=== PATIENT | female | born 1975 | race Caucasian/White ===

== ENCOUNTER 2016-07-30 16:42 | Emergency (ER) | payer BC ==
[2016-07-30 16:46] VITALS: RESP 20
--- NOTE | 2016-07-30 17:13 | ED ---
Abdominal Pain HPI - General Chief Complaint: Abdominal Pain Stated Complaint: Back/Side Pain Time Seen by Provider: 07/30/16 16:48 Source: patient, RN notes reviewed Mode of arrival: ambulatory Limitations: no limitations - History of Present Illness Initial Comments: 41-year-old female presents emergency Department with chief complaint of right flank pain. Patient states that she's had on and off pain over the last 6 months. Patient hasn't seen her primary care physician who ordered a urinalysis CT. Patient states there is no acute abnormality on CT. Patient states that she figured should come today when the pain was active. States pain started as approximately 10:00. She states that she broke process exam. She states is nothing that starts her pain or helps it one is active. Patient states that primarily in the right side of her abdomen and back. Patient denies any dysuria hematuria. Has no history kidney stones. Patient had a prior hernia repair but denies any hysterectomy, appendectomy, cholecystectomy. Patient has no bowel issues. Denies diarrhea or constipation. Denies melena , hematochezia, hematemesis copremesis. Patient has fever or chills. - Related Data Previous Rx's Medication Instructions Recorded Hydrocodone/Acetaminophen [Bradley 1 tab PO Q6HR PRN #20 tab 07/30/16 5-325] Ketorolac [Toradol] 10 mg PO Q8HR #15 tab 07/30/16 Allergies Allergy/AdvReac Type Severity Reaction Status Date / Time hydromorphone HCl AdvReac Severe MIGRAINE Verified 07/30/16 17:24 [From Dilaudid] Review of Systems ROS Statement: Those systems with pertinent positive or pertinent negative responses have been documented in the HPI. ROS Other: All systems not noted in ROS Statement are negative. Past Medical History Additional Past Medical History / Comment(s): MIGRAINES History of Any Multi-Drug Resistant Organisms: None Reported Past Surgical History: Tonsillectomy, Tubal Ligation Additional Past Surgical History / Comment(s): two metal plates in left wrist Past Anesthesia/Blood Transfusion Reactions: Postoperative Nausea & Vomiting ( PONV) Past Psychological History: No Psychological Hx Reported Smoking Status: Never smoker Past Alcohol Use History: Occasional Past Drug Use History: None Reported General Exam Limitations: no limitations General appearance: alert, in no apparent distress Head exam: Present: atraumatic, normocephalic, normal inspection Neck exam: Present: normal inspection, full ROM. Absent: tenderness, meningismus, lymphadenopathy Respiratory exam: Present: normal lung sounds bilaterally. Absent: respiratory distress, wheezes, rales, rhonchi, stridor Cardiovascular Exam: Present: regular rate, normal rhythm, normal heart sounds. Absent: systolic murmur, diastolic murmur, rubs, gallop, clicks GI/Abdominal exam: Present: soft, tenderness (Moderate quadrant tenderness), normal bowel sounds. Absent: distended, guarding, rebound, rigid Back exam: Present: CVA tenderness (R). Absent: CVA tenderness (L) Skin exam: Present: warm, dry, intact, normal color. Absent: rash Course Vital Signs 07/30/16 16:44 Temperature 97.7 F Pulse Rate 52 L Respiratory 20 Rate Blood Pressure 122/73 O2 Sat by Pulse 99 Oximetry Medical Decision Making - Medical Decision Making 41-year-old female presented for right flank pain. Patient's ultrasound shows dilation of the clots and up on the right kidney. Patient has 4 RBCs her urine. Patient has CT in June show no evidence of stone though is slightly limited secondary to contrast. Patient will be follow-up with urologist for further evaluation and primary care physician. Return parameters. - Lab Data Result diagrams: 07/30/16 17:10 07/30/16 17:10 Lab Results 07/30/16 07/30/16 07/30/16 Range/Units 17:10 17:10 17:10 WBC 6.1 (3.8-10.6) k/uL RBC 4.33 (3.80-5.40) m/uL Hgb 13.7 (11.4-16.0) gm/dL Hct 40.1 (34.0-46.0) % MCV 92.6 (80.0-100.0) fL MCH 31.6 (25.0-35.0) pg MCHC 34.1 (31.0-37.0) g/dL RDW 11.9 (11.5-15.5) % Plt Count 215 (150-450) k/uL Neutrophils % 50 % Lymphocytes % 37 % Monocytes % 6 % Eosinophils % 5 % Basophils % 1 % Neutrophils # 3.1 (1.3-7.7) k/uL Lymphocytes # 2.2 (1.0-4.8) k/uL Monocytes # 0.3 (0-1.0) k/uL Eosinophils # 0.3 (0-0.7) k/uL Basophils # 0.1 (0-0.2) k/uL Sodium 140 (137-145) mmol/L Potassium 4.3 (3.5-5.1) mmol/L Chloride 105 (98-107) mmol/L Carbon Dioxide 21 L (22-30) mmol/L Anion Gap 14 mmol/L BUN 17 (7-17) mg/dL Creatinine 0.88 (0.52-1.04) mg/dL Est GFR (MDRD) Af Amer >60 (>60 ml/min/1.73 sqM) Est GFR (MDRD) Non-Af >60 (>60 ml/min/1.73 sqM) Glucose 85 (74-99) mg/dL Calcium 9.5 (8.4-10.2) mg/dL Total Bilirubin 1.2 (0.2-1.3) mg/dL AST 33 (14-36) U/L ALT 41 (9-52) U/L Alkaline Phosphatase 59 (38-126) U/L Total Protein 7.6 (6.3-8.2) g/dL Albumin 4.9 (3.5-5.0) g/dL Amylase 44 (30-110) U/L Lipase 121 (23-300) U/L Urine Color Urine Appearance (Clear) Urine pH (5.0-8.0) Ur Specific Parker (1.001-1.035) Urine Protein (Negative) Urine Glucose (UA) (Negative) Urine Ketones (Negative) Urine Blood (Negative) Urine Nitrate (Negative) Urine Bilirubin (Negative) Urine Urobilinogen (<2.0) mg/dL Ur Leukocyte Esterase (Negative) Urine RBC (0-5) /hpf Urine WBC (0-5) /hpf Ur Squamous Epith Cells (0-4) /hpf Amorphous Sediment (None) /hpf Urine Mucus (None) /hpf Urine HCG, Qual Not Detected (Not Detectd) 07/30/16 Range/Units 17:10 WBC (3.8-10.6) k/uL RBC (3.80-5.40) m/uL Hgb (11.4-16.0) gm/dL Hct (34.0-46.0) % MCV (80.0-100.0) fL MCH (25.0-35.0) pg MCHC (31.0-37.0) g/dL RDW (11.5-15.5) % Plt Count (150-450) k/uL Neutrophils % % Lymphocytes % % Monocytes % % Eosinophils % % Basophils % % Neutrophils # (1.3-7.7) k/uL Lymphocytes # (1.0-4.8) k/uL Monocytes # (0-1.0) k/uL Eosinophils # (0-0.7) k/uL Basophils # (0-0.2) k/uL Sodium (137-145) mmol/L Potassium (3.5-5.1) mmol/L Chloride (98-107) mmol/L Carbon Dioxide (22-30) mmol/L Anion Gap mmol/L BUN (7-17) mg/dL Creatinine (0.52-1.04) mg/dL Est GFR (MDRD) Af Amer (>60 ml/min/1.73 sqM) Est GFR (MDRD) Non-Af (>60 ml/min/1.73 sqM) Glucose (74-99) mg/dL Calcium (8.4-10.2) mg/dL Total Bilirubin (0.2-1.3) mg/dL AST (14-36) U/L ALT (9-52) U/L Alkaline Phosphatase (38-126) U/L Total Protein (6.3-8.2) g/dL Albumin (3.5-5.0) g/dL Amylase (30-110) U/L Lipase (23-300) U/L Urine Color Light Yellow Urine Appearance Clear (Clear) Urine pH 6.5 (5.0-8.0) Ur Specific Parker 1.012 (1.001-1.035) Urine Protein Negative (Negative) Urine Glucose (UA) Negative (Negative) Urine Ketones Negative (Negative) Urine Blood Small H (Negative) Urine Nitrate Negative (Negative) Urine Bilirubin Negative (Negative) Urine Urobilinogen <2.0 (<2.0) mg/dL Ur Leukocyte Esterase Negative (Negative) Urine RBC 4 (0-5) /hpf Urine WBC 3 (0-5) /hpf Ur Squamous Epith Cells 1 (0-4) /hpf Amorphous Sediment Rare H (None) /hpf Urine Mucus Rare H (None) /hpf Urine HCG, Qual (Not Detectd) Disposition Clinical Impression: Right flank pain, Renal colic, Dilatation of kidney collecting system Disposition: HOME SELF-CARE Condition: Stable Instructions: Flank Pain (ED) Additional Instructions: Please return to the Emergency Department if symptoms worsen or any other concerns. Prescriptions: Hydrocodone/Acetaminophen [Bradley 5-325] 1 tab PO Q6HR PRN #20 tab PRN Reason: Pain Ketorolac [Toradol] 10 mg PO Q8HR #15 tab Referrals: Olga Paiz MD [Primary Care Provider] - 1-2 days Manuelito Vázquez MD [STAFF PHYSICIAN] - 1-2 days Time of Disposition: 18:44
[2016-07-30 17:25] LABS: Basophils # (A) 0.1 k/uL (0-0.2); Basophils % (A) 1 %; CH 32.3; Eosinophils # (A) 0.3 k/uL (0-0.7); Eosinophils % (A) 5 %; HCT 40.1 % (34.0-46.0); HGB 13.7 gm/dL (11.4-16.0); Luc # (Auto) 0.08; Luc % (Auto) 1; Lymphocytes # (A) 2.2 k/uL (1.0-4.8); Lymphocytes % (A) 37 %; MCH 31.6 pg (25.0-35.0); MCHC 34.1 g/dL (31.0-37.0); MCV 92.6 fL (80.0-100.0); Mean Platelet Volume 7.5; Monocytes # (A) 0.3 k/uL (0-1.0); Monocytes % (A) 6 %; Neutrophils # (A) 3.1 k/uL (1.3-7.7); Neutrophils % (A) 50 %; RBC 4.33 m/uL (3.80-5.40); RDW 11.9 % (11.5-15.5); WBC 6.1 k/uL (3.8-10.6); WBC (Perox) 6.01
[2016-07-30 17:27] LABS: Amorphous Sediment,Urine Rare /hpf; Appearance,Urine Clear (Clear); Bilirubin,Urine Negative (Negative); Glucose,Urine (UA) Negative (Negative); Ketones,Urine Negative (Negative); Leukocyte Esterase,Urine Negative (Negative); Mucus,Urine Rare /hpf; Nitrite,Urine Negative (Negative); PH, Urine 6.5 (5.0-8.0); Particle Count 994; Protein,Urine Negative (Negative); RBC,Urine 4 /hpf (0-5); Specific Gravity,Urine 1.012 (1.001-1.035); Squamous Epithelial Cell,Urine 1 /hpf (0-4); UA Billing (MACRO vs. MICRO) MICRO; Urobilinogen,Urine <2.0 mg/dL (<2.0); WBC,Urine 3 /hpf (0-5)
[2016-07-30 17:34] LABS: ALT 41 U/L (9-52); AST 33 U/L (14-36); Alkaline Phosphatase 59 U/L (38-126); Amylase 44 U/L (30-110); Anion Gap 14 mmol/L; Blood Urea Nitrogen 17 mg/dL (7-17); Calcium 9.5 mg/dL (8.4-10.2); Carbon Dioxide 21 mmol/L (22-30); Chloride 105 mmol/L (98-107); Glucose 85 mg/dL (74-99); Non-African American GFR(MDRD) >60 (>60 ml/min/1.73 sqM); Potassium 4.3 mmol/L (3.5-5.1); Sodium 140 mmol/L (137-145); Total Bilirubin 1.2 mg/dL (0.2-1.3); Total Protein 7.6 g/dL (6.3-8.2)
--- NOTE | 2016-07-30 18:18 | US ---
EXAMINATION TYPE: US abdomen limited DATE OF EXAM: 07/30/2016 5:46 PM COMPARISON: Ultrasound November 18, 2013 CLINICAL HISTORY: Pain. EXAM MEASUREMENTS: Liver Length: 13.8 cm Gallbladder Wall: 0.3 cm CBD: 0.2 cm Right Kidney: 11.0 x 5.3 x 5.4 cm FINDINGS: Pancreas: Obscured by bowel gas Liver: wnl Gallbladder: wnl Evidence for sonographic Quiroz's sign: no CBD: wnl Right Kidney: Minimally dilated upper collecting system, nonspecific finding unless there is clinica l right renal colic. IMPRESSION: NO DEFINITE ACUTE PROCESS, THOUGH MILDLY DILATED RIGHT UPPER COLLECTING SYSTEM NOTED.
[2016-07-30] MEDS ORDERED: HYDROcodone/APAP 5-325MG 1 EACH TAB PO STA (18:42)
[2016-07-30] MEDS ORDERED: KETOROLAC 30 MG/ML 1 ML VIAL IVP STA (18:42)
[2016-07-30 19:05] VITALS: BP 127/75; PULSE 59; TEMP 97.8
--- NOTE | 2016-07-30 19:37 | XR ---
EXAMINATION TYPE: XR KUB DATE OF EXAM: 07/30/2016 6:48 PM COMPARISON: NONE HISTORY: Pain TECHNIQUE 2 upright views FINDINGS: There is no pneumoperitoneum or pneumatosis. There is abundant pancolonic stool. Bowel gas pattern is otherwise unremarkable. No evident soft tissue mass. No focal skeletal findings. The visua lized lung bases and pleural spaces are negative. IMPRESSION: EVIDENT CONSTIPATION. NO OTHER FINDINGS.
== END 2016-07-30 19:04 | disposition home or self-care (01) ==
LOC: EC 16:42
DX: N23 Unspecified renal colic (principal); N28.89 Other specified disorders of kidney and ureter; Z88.5 Allergy status to narcotic agent
CPT/HCPCS: 36415; 80053; 82150; 83690; 85025; 81001; 81025; 74000; 76705; 99284; 96374; J1885

== ENCOUNTER → 2016-10-26 | Outpatient (CLI) | payer BC ==
[2016-10-22 14:26] VITALS: BMI 28.8
[2016-10-26 14:05] VITALS: BP 128/78; PULSE 60; RESP 18; TEMP 98.6
--- NOTE | 2016-10-26 14:31 | P.CONS ---
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 The pain goes to the right side and the mid axillary line approximately. It does not radiate to the groin or to the leg. The patient denies any bowel or bladder dysfunction she also denies any paresthesia in the lower extremities. This pain does not wake her up at night. She denies any weight loss recently. This pain occurs and episodes each one with the last 30-45 minutes is not constant. The pain goes away on its own. The patient has not noticed any exacerbating or relieving factors. She was ruled out for any urinary problems the patient denies any history of skin rash in the painful area. Past Medical History Additional Past Medical History / Comment(s): MIGRAINES, rt flank pain History of Any Multi-Drug Resistant Organisms: None Reported Past Surgical History: Tonsillectomy, Tubal Ligation Additional Past Surgical History / Comment(s): two metal plates in left wrist Past Anesthesia/Blood Transfusion Reactions: Postoperative Nausea & Vomiting ( PONV) Past Psychological History: No Psychological Hx Reported Smoking Status: Never smoker Past Alcohol Use History: Occasional Past Drug Use History: None Reported - Past Family History Mother Family Medical History: No Reported History Medications and Allergies Home Medications Medication Instructions Recorded Confirmed Type Linaclotide [Linzess] 290 mcg PO DAILY 10/22/16 10/22/16 History Sertraline [Zoloft] 50 mg PO DAILY 10/22/16 10/22/16 History methylPREDNISolone Dose Pack 4 mg PO DIRECTED 10/22/16 10/22/16 History [Medrol Dose Pack] Allergies Allergy/AdvReac Type Severity Reaction Status Date / Time hydromorphone HCl AdvReac Severe MIGRAINE Verified 10/22/16 14:20 [From Dilaudid] Physical Exam Vitals: Vital Signs Temp Pulse Resp BP Pulse Ox 10/26/16 13:53 98.6 F 60 18 128/78 97 - Constitutional General appearance: average body habitus, cooperative - EENT Eyes: PERRLA - Respiratory Respiratory: bilateral: CTA - Cardiovascular Rhythm: regular Heart sounds: normal: S1, S2 - Musculoskeletal Musculoskeletal: gait normal - Psychiatric Psychiatric: A&O x's 3, appropriate affect, intact judgment & insight Neuro exam of the lower extremities showed normal and symmetrical deep tendon reflexes and muscle strength. Straight leg raising test negative bilaterally. She has mild tenderness on the right side of her lumbar spine right above the iliac crest. She has normal range of motion of the lumbar spine. Lateral flexion does not increase the patient's pain. Extension of the lumbar spine does not increase her pain. 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 Differential diagnoses include myofascial pain, lumbar stenosis . Lumbar spondylosis without myelopathy. Her lumbar spine MRI showed moderate spinal canal stenosis at the L3 4 level with compression of the traversing right L4 nerve root it also showed partial sacralization of L5. At this point I will schedule the patient to have lumbar epidural steroid injection under fluoroscopic guidance at the L3-L4 level in the right paramedian approach. The procedure was explained to the patient and her questions were answered. I thank you for the referral.
== END | disposition home or self-care (01) ==
LOC: PNWHC3 13:30
PROVIDERS: ATTEND Anesthesiology
DX: M47.816 Spondylosis without myelopathy or radiculopathy, lumbar region (principal); M48.06 Spinal stenosis, lumbar region; Z79.899 Other long term (current) drug therapy; Z88.5 Allergy status to narcotic agent
CPT/HCPCS: 99211

== ENCOUNTER 2016-11-05 06:22 | Day surgery (SDC) | payer BC ==
[2016-11-04 11:03] VITALS: BMI 28.8
[~2016-11-05 06:22] MED LIST: LACTATED RINGERS 1,000 ML IV SCH
[2016-11-05 06:44] VITALS: TEMP 97.7
[2016-11-05] MEDS ORDERED: LIDOCAINE 1% 20 ML VIAL (10MG/ML) FOR IV START INTRADERMA ONE (06:49)
[2016-11-05] MEDS ORDERED: TRIAMCINOLONE ACETONIDE 40 MG/ML 1 ML VIAL ONE (07:09)
[2016-11-05] MEDS ORDERED: MIDAZOLAM 2 MG/2 ML VIAL ONE (07:09)
[2016-11-05] MEDS ORDERED: IOHEXOL 180 MG/ML 1 ML ML ONE (07:09)
[2016-11-05] MEDS ORDERED: fentaNYL (PF) 50 MCG/ML 2 ML AMP ONE (07:09)
[2016-11-05] MEDS ORDERED: IV FLUID CONTINUATION 1,000 ML IV ONE (07:36)
[2016-11-05 07:37] VITALS: RESP 16
--- NOTE | 2016-11-05 07:43 | P.PCN ---
Date of Procedure: 11/05/16 Procedure(s) Performed: PREOPERATIVE DIAGNOSIS: 1- Lumbar spinal stenosis 2-Lumbar spondylosis with Facet arthropathy without myelopathy POSTOPERATIVE DIAGNOSIS: 1-Lumber spinal stenosis 2-Lumbar spondylosis with Facet arthropathy without myelopathy PROCEDURE 1. Lumbar epidural steroid injection under fluoroscopic guidance at the L3-4 level.( right paramedial approach 2. Lumbar epidurogram. ANESTHESIA: Local with 1% lidocaine 3 ml and IV sedation with Versed 3 mg , and fentanyle 100 Mcg EBL: Minimal PROCEDURE INDICATION: The patient with low back pain and radiculitis symptoms unresponsive to conservative treatment. Fluoroscopy was used to optimize visualization of the needle placement and to maximize safety. PROCEDURE DESCRIPTION / TECHNIQUE: The patient was seen and identified in the preoperative area. Risks, benefits , complications including but not limited to infections ,bleeding ,allergic reaction to the medications ,nerve damage and not complete pain releife , and alternatives were discussed with the patient. The patient agreed to proceed with the procedure and signed the consent. IV was started, and vital signs were stable. Patient was taken to the OR and time out was completed. The patient was placed in the prone position on procedure table and a pillow was placed under the abdomen to reduce lumbar lordosis. The lumbosacral area was prepped and draped in the usual sterile fashion.ere closely monitored during the procedure. Conscious sedation was used during the procedure to decrease patients anxiety. Vital signs was monitered during the entire procedure. Using anterior-posterior fluoroscopy, the L3-4 interlaminar space was identified and the skin over this site was marked and then infiltrated with 1% lidocaine subcutaneously. Subsequently, a 20-gauge Tuohy epidural needle was inserted and advanced toward the right side of the epidural space using the `` Loss of resistance technique and guided by AP and lateral fluoroscopy. The correct needle position in the epidural space was verified with the injection of 2 mL of the water soluble contrast dye Omnipaque 180 contrast and observing an excellent epidurogram with the epidural spread of the dye ( toward the right aspect of the epidural space ), then after negative aspiration for blood and CSF and in the absence of paresthesias. Again after negative aspiration, a 6 ml mixture containing 80 mg of Kenalog and 2 ml of preservative free Normal Saline, and 2 ml of preservative free lidocaine 1% solution was injected and a washout of epidurogram was seen. Needle was withdrawn intact, skin was cleansed , and bandages were applied. COMPLICATIONS: None DISPOSITION / PLANS: The patient was placed in a supine position and transferred to the recovery area in a stable condition for observation. There was no evidence of lower extremity motor or sensory deficit after the procedure. Patient was discharged from the recovery room after meeting discharge criteria. Home discharge instructions were given to the patient by the staff. The patient was reexamined prior to discharge. The patient will schedule a follow up in the clinic in 2-4 weeks.
[2016-11-05 07:52] VITALS: BP 111/74; PULSE 62
--- NOTE | 2016-11-05 09:38 | FL ---
EXAMINATION TYPE: FL guided pain mgmt statistic DATE OF EXAM: 11/05/2016 7:36 AM HISTORY: Flouroscopy time 6 seconds of fluoroscopy provided. IMPRESSION: 1. Fluoroscopy time.
== END 2016-11-05 08:10 | disposition home or self-care (01) ==
LOC: ORPAIN 06:22
PROVIDERS: ATTEND Specialist
DX: M48.06 Spinal stenosis, lumbar region (principal); M47.26 Other spondylosis with radiculopathy, lumbar region; M46.96 Unspecified inflammatory spondylopathy, lumbar region; Z88.5 Allergy status to narcotic agent
CPT/HCPCS: 81025; 62323; J2250; J3301; Q9965; J3010

== ENCOUNTER 2016-11-23 06:47 | Day surgery (SDC) | payer BC ==
[2016-11-19 11:21] VITALS: BMI 29.0
[2016-11-23 07:24] VITALS: TEMP 97.7
[2016-11-23] MEDS ORDERED: LIDOCAINE 1% 20 ML VIAL (10MG/ML) FOR IV START INTRADERMA ONE (07:27)
[2016-11-23] MEDS ORDERED: LACTATED RINGERS 1,000 ML IV SCH (07:45)
[2016-11-23] MEDS ORDERED: fentaNYL (PF) 50 MCG/ML 2 ML AMP ONE (07:51)
[2016-11-23] MEDS ORDERED: TRIAMCINOLONE ACETONIDE 40 MG/ML 1 ML VIAL ONE (07:51)
[2016-11-23] MEDS ORDERED: BUPIVACAINE (PF) 0.25% 30 ML VIAL ONE (07:51)
[2016-11-23] MEDS ORDERED: IOHEXOL 180 MG/ML 1 ML ML ONE (07:51)
[2016-11-23] MEDS ORDERED: MIDAZOLAM 2 MG/2 ML VIAL ONE (07:51)
--- NOTE | 2016-11-23 08:13 | P.PCN ---
Date of Procedure: 11/23/16 Preoperative Diagnosis: Lumbar stenosis Lumbar spondylosis without myelopathy Postoperative Diagnosis: Same as above Procedure(s) Performed: Lumbar epidural steroid injection under fluoroscopic guidance in the interlaminar approach at the L3-4 Implants: Anesthesia: other (Moderate sedation) Surgeon: Riley Delarosa Pathology: none sent Condition: stable Disposition: PACU Indications for Procedure: Operative Findings: Description of Procedure: The patient was seen in the preop holding area consent was obtained then she was brought into the procedure room and placed in prone position. Skin was prepped with Betadine 3 and draped in a sterile manner. Lidocaine 1% was used to numb the skin up at the target point that was at the L3-4 level on the right paramedian approach. I used 20-gauge 3-1/2 inch Touhy epidural needle with loss -of-resistance to air to identify the epidural space. There was positive loss- of-resistance to air at about 6 cm from skin negative aspiration for any CSF or blood negative paresthesia. I then injected 1 mL of Omnipaque which showed typical epidurogram with AP and lateral views of fluoroscopy and after that I injected 40 mg of Kenalog +2 MLS of Marcaine 0.25% +4 MLS of preservative free normal saline to a total volume of 7 MLS in the epidural space. Patient tolerated procedure well.
[2016-11-23] MEDS ORDERED: IV FLUID CONTINUATION 1,000 ML IV ONE (08:14)
[2016-11-23 08:17] VITALS: RESP 18
--- NOTE | 2016-11-23 08:17 | FL ---
EXAMINATION TYPE: FL guided pain mgmt statistic DATE OF EXAM: 11/23/2016 8:14 AM HISTORY: Flouroscopy time 8 seconds of fluoroscopy provided. IMPRESSION: 1. Fluoroscopy time.
[2016-11-23 08:32] VITALS: BP 118/73; PULSE 78
== END 2016-11-23 08:51 | disposition home or self-care (01) ==
LOC: ORPAIN 06:47
PROVIDERS: ATTEND Anesthesiology
DX: M48.06 Spinal stenosis, lumbar region (principal)
CPT/HCPCS: 81025; 62323; 99152; J2250; J3301; Q9965; J3010

== ENCOUNTER → 2016-12-29 | Outpatient (CLI) | payer BC ==
[2016-12-29 14:04] VITALS: BP 123/87; PULSE 70; RESP 16; TEMP 97.8
--- NOTE | 2016-12-29 14:21 | P.PN ---
Progress Note - Text Patient returns for followup for chronic back pain with radiation to right hip. Patient recently underwent LESI x2, which provided some relief for 1-2 weeks' interval and now the patient feels as though the pain is deep in her right hip, just cephalad to her ilium. Patient continues on Motrin medications for pain with marginal relief. Patient denies adverse drug effects from medications. Today, pt denies new-onset weakness, bowel/bladder incontinence, or any other signs or symptoms of cauda equina syndrome. There are no signs of acute intoxication, and no indications of medication diversion or overuse. In addition to above, 13-point review of systems is also negative for chest pain , shortness of breath, changes in vision, changes in hearing, new onset weakness , abdominal pain, diarrhea, extreme fatigue, malaise, fever, skin changes, homicidal or suicidal ideation, or bowel or bladder incontinence. Vital Signs: Reviewed in EMR Gen: WDWN, AAOx3, NAD HEENT: NCAT, EOMI, hearing grossly normal Pulm: resp unlabored Abd: soft, NT, ND Neck: supple, trachea midline TTP over iliac crest; no rebound or guarding mild lumbar paravertebral tenderness Neuro: CN II-XII grossly intact, muscle strength lower extremities PRESERVED Imaging: Reviewed in EMR Assessment: 1. cluneal neuropathy 2. lumbar radiculopathy 3. chronic pain syndrome Plan: 1. Explanation: Opioid and psychological risk scores were reviewed. Diagnoses , prognoses, and multiple treatment options including but not limited to physical therapy, interventional therapies, adjuvant medical therapies, narcotic medication therapies, and surgery were discussed with the patient and all questions were answered to the patient's satisfaction. 2. Opioid agreement: none prescribed 3. Counseling: The patient was counseled extensively on SMOKING CESSATION, BODY MASS INDEX, EXERCISE. Specifically, the patient was instructed regarding the importance of smoking cessation, obesity, and exercise in the context of both chronic pain and overall health. 4. Procedures: right superior cluneal nerve block 5. Consultations: None 6. Investigations: None 7. Medications: lidocaine ointment 8. Disposition: f/u for procedure as scheduled PQRS measures: 1-Patient's medications are documented in the chart. 2-Tobacco use is negative, counseling NOT given 3-Patient has not had a pneumococcal vaccine. 4-Advanced care planning discussed, patient unable to give. 5-Opioid contract NOT signed with the patient. 6-Pain positive, follow-up visit or procedure scheduled 7-Patient's blood pressure measured and documented, WNL. 8-Patient's weight was measured, and body mass index ABOVE the normal limits, and counseling was done. Patient instructed to follow up with PCP. 9-Patient WAS NOT identified as an unhealthy alcohol user.
== END ==
LOC: PNWHC3 13:36
PROVIDERS: ATTEND Anesthesiology
DX: M54.16 Radiculopathy, lumbar region (principal); G89.4 Chronic pain syndrome; Z79.891 Long term (current) use of opiate analgesic
CPT/HCPCS: 99211

== ENCOUNTER 2017-01-21 08:37 | Day surgery (SDC) | payer BC ==
[2017-01-14 11:48] VITALS: BMI 29.5
[2017-01-21 09:08] VITALS: TEMP 98.2
[2017-01-21] MEDS ORDERED: LIDOCAINE 1% 20 ML VIAL (10MG/ML) FOR IV START INTRADERMA ONE (09:15)
[2017-01-21] MEDS ORDERED: LACTATED RINGERS 1,000 ML IV SCH (09:15)
[2017-01-21] MEDS ORDERED: IV FLUID CONTINUATION 1,000 ML IV ONE ×2 (10:29)
[2017-01-21 10:44] VITALS: BP 103/62; PULSE 51; RESP 16
--- NOTE | 2017-01-21 10:56 | P.PCN ---
Date of Procedure: 01/21/17 Preoperative Diagnosis: Postoperative Diagnosis: Procedure(s) Performed: Implants: Surgeon: Juni Randhawa Pathology: none sent Condition: stable Disposition: PACU Indications for Procedure: Operative Findings: Description of Procedure: PREOPERATIVE DIAGNOSIS: 1-Right hip and buttock pain likely secondary to cluneal neuralgia POSTOPERATIVE DIAGNOSIS:. same PROCEDURES: 1-Right superior cluneal nerve block with fluoroscopic guidance ANESTHESIA: LOCAL with IV sedation EBL: Minimal. PROCEDURE INDICATIONS: This patient with a history of hip and buttock pain secondary to bilateral cluneal neuralgia unresponsive to conservative management. No use of blood thinners. PROCEDURE DESCRIPTION: The patient was seen and identified in the preoperative area. Risks, benefits, complications, and alternatives were discussed with the patient, with risks including but not limited to bleeding, infection, nerve damage, incomplete pain relief, and allergic reactions to medications. The patient agreed to proceed with the procedure and signed the consent. IV was started, and vital signs were stable. Patient was taken to the OR and time out was completed to verify proper patient , laterality of procedure, and allergies. The patient was placed in the prone position on procedure table. The right gluteal buttock area and low back were prepped and draped in the usual sterile fashion. Vital signs were closely monitored during the procedure and sedation was given by anesthesia team. The fluoroscopic camera was placed in AP view and the top of the right iliac crest and greater sciatic foramen were identified. Subsequently, a 22-gauge 3.5 inch spinal needle was introduced to the posterior and top of the right iliac crest under direct fluoroscopic visualization. At first, the needle was directed toward the crest until it hit bone and was then walked off to the top of the crest. Subsequently, 1 ml of a solution containing total 8 mL (7 ml of 0.5% preservative-free bupivacaine mixed with 40 mg of Kenalog) was injected after negative aspiration. The needle was then maneuvered to the left and to the right to multiple locations along the top of the right iliac crest and a total of 8 ml solution was injected on the right side after intermittent, negative aspirations. Needle was withdrawn intact. Skin was cleansed, and bandages were applied. COMPLICATIONS: None. DISPOSITION / PLANS: The patient was placed in a supine position and transferred to the recovery area in a stable condition for observation and was discharged from the recovery room after meeting discharge criteria. Home discharge instructions given to the patient by the staff. The patient was reexamined prior to discharge and there were no issues. We will plan to repeat this procedure in 4-6 weeks if the patient gets relief.
--- NOTE | 2017-01-21 12:44 | FL ---
EXAMINATION TYPE: FL guided pain mgmt statistic DATE OF EXAM: 01/21/2017 HISTORY: Flouroscopy time 8 seconds of fluoroscopy provided. IMPRESSION: 1. Fluoroscopy time.
== END 2017-01-21 10:49 | disposition home or self-care (01) ==
LOC: ORPAIN 08:37
PROVIDERS: ATTEND Anesthesiology
DX: M79.2 Neuralgia and neuritis, unspecified (principal)
CPT/HCPCS: 81025; 64450; J2250; J3301; 99152

== ENCOUNTER 2017-02-17 07:49 | Day surgery (SDC) | payer BC ==
[2017-02-16 11:01] VITALS: BMI 28.8
[2017-02-17 08:08] VITALS: RESP 18; TEMP 97.9
[2017-02-17] MEDS ORDERED: LIDOCAINE 1% 20 ML VIAL (10MG/ML) FOR IV START INTRADERMA ONE (08:13)
[2017-02-17] MEDS ORDERED: IV FLUID CONTINUATION 1,000 ML IV ONE (08:56)
[2017-02-17 09:30] VITALS: BP 123/79; PULSE 51
--- NOTE | 2017-02-17 09:35 | P.PCN ---
Date of Procedure: 02/17/17 Preoperative Diagnosis: Postoperative Diagnosis: Procedure(s) Performed: Implants: Surgeon: Juni Randhawa Pathology: none sent Condition: stable Disposition: PACU Indications for Procedure: Operative Findings: Description of Procedure: PREOPERATIVE DIAGNOSIS: 1-Right hip and buttock pain likely secondary to cluneal neuralgia POSTOPERATIVE DIAGNOSIS:. same PROCEDURES: 1-Right superior cluneal nerve block with fluoroscopic guidance ANESTHESIA: LOCAL with IV sedation EBL: Minimal. 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 No use of blood thinners. PROCEDURE DESCRIPTION: The patient was seen and identified in the preoperative area. Risks, benefits, complications, and alternatives were discussed with the patient, with risks including but not limited to bleeding, infection, nerve damage, incomplete pain relief, and allergic reactions to medications. The patient agreed to proceed with the procedure and signed the consent. IV was started, and vital signs were stable. Patient was taken to the OR and time out was completed to verify proper patient , laterality of procedure, and allergies. The patient was placed in the prone position on procedure table. The right gluteal buttock area and low back were prepped and draped in the usual sterile fashion. Vital signs were closely monitored during the procedure and sedation was given by anesthesia team. The fluoroscopic camera was placed in AP view and the top of the right iliac crest and greater sciatic foramen were identified. Subsequently, a 22-gauge 3.5 inch spinal needle was introduced to the posterior and top of the right iliac crest under direct fluoroscopic visualization. At first, the needle was directed toward the crest until it hit bone and was then walked off to the top of the crest. Subsequently, 1 ml of a solution containing total 8 mL (7 ml of 0.5% preservative-free bupivacaine mixed with 40 mg of Kenalog) was injected after negative aspiration. The needle was then maneuvered to the left and to the right to multiple locations along the top of the right iliac crest and a total of 8 ml solution was injected on the right side after intermittent, negative aspirations. Needle was withdrawn intact. Skin was cleansed, and bandages were applied. COMPLICATIONS: None. DISPOSITION / PLANS: The patient was placed in a supine position and transferred to the recovery area in a stable condition for observation and was discharged from the recovery room after meeting discharge criteria. Home discharge instructions given to the patient by the staff. The patient was reexamined prior to discharge and there were no issues. Patient will follow up in clinic in 4-6 weeks.
--- NOTE | 2017-02-17 10:54 | FL ---
Fluoroscopy HISTORY: Pain 6 seconds fluoroscopy time supplied to the referring clinician. 8 intraoperative C-arm images docume nt the procedure. See dictated report from anesthesia.
== END 2017-02-17 09:40 | disposition home or self-care (01) ==
LOC: ORPAIN 07:49
DX: G58.8 Other specified mononeuropathies (principal); M25.551 Pain in right hip; Z88.5 Allergy status to narcotic agent; Z79.899 Other long term (current) drug therapy
CPT/HCPCS: 81025; 64450; J2250; J3301; J3010; 64640; 99152

== ENCOUNTER → 2017-03-22 | Outpatient (CLI) | payer BC ==
[2017-03-22 15:05] VITALS: BP 125/72; PULSE 67; RESP 16
--- NOTE | 2017-03-22 15:16 | P.PN ---
Progress Note - Text This is a 41-year-old female with a one-year history of right mid back and right lower quadrant pain that started with no precipitating event. The patient has no relationship to the menstrual period or 2 meals. It also has no relationship to physical activity. It started suddenly and last for 30 minutes then goes away on its own. It used to be in the back area radiating to the right lower quadrant however the epidural steroid injection didn't help get rid of the back pain. The second cluneal nerve block helped the pain slightly however the pain still comes back randomly. The patient however noticed increased pain with the level of stress she is exposed to. By physical exam the patient has no tenderness in the right lower quadrant, flexion the right psoas muscle did not increase her pain. The patient has a history of IBS however she had multiple test on the GI system and her physician does not think that this pain originates from the GI system. 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 The patient has pain in the right lower quadrant tried above the anterior iliac crest of unknown cause. The patient failed to respond to multiple injections and treatments. I will try a small dose of Lyrica and gradually escalating the dose to see if this would help her pain. The patient is warned against side effects of Lyrica including suicidal thoughts weight gain and sleepiness. We will see the patient next month for reevaluation.
== END ==
LOC: PNWHC3 14:43
PROVIDERS: ATTEND Anesthesiology
DX: M54.9 Dorsalgia, unspecified (principal); R10.31 Right lower quadrant pain
CPT/HCPCS: 99211

== ENCOUNTER 2017-04-08 18:16 | Emergency (ER) | payer BC ==
[2017-04-08 18:22] VITALS: RESP 18
[2017-04-08] MEDS ORDERED: KETOROLAC 30 MG/ML 1 ML VIAL IVP STA (19:59)
[2017-04-08] MEDS ORDERED: diphenhydrAMINE 50 MG/ML 1 ML VIAL IVP STA (19:59)
[2017-04-08] MEDS ORDERED: DEXAMETHASONE SOD PHOSPHATE 10 MG/ML 1 ML VIAL IV STA (19:59)
[2017-04-08] MEDS ORDERED: METOCLOPRAMIDE 5 MG/ML 2 ML VIAL IVP STA (19:59)
[2017-04-08] MEDS ORDERED: SODIUM CHLORIDE 0.9% 2,000 ML IV ONE (19:59)
--- NOTE | 2017-04-08 20:26 | ED ---
Abdominal Pain HPI - General Chief Complaint: Abdominal Pain Stated Complaint: Right side abd pain Time Seen by Provider: 04/08/17 19:50 Source: patient Mode of arrival: ambulatory Limitations: no limitations - History of Present Illness Initial Comments: Patient is a 41-year-old female presents with chief complaint of abdominal pain. Onset was 4 hours ago. Patient states that she has had this type of pain on and off for one year now. Patient is significant medical history of migraine headaches, and anxiety. Today, the patient states that she was about to make dinner when she had acute onset of right-sided abdominal pain. She cannot think of any inciting incident, nor can she identify any aggravating or alleviating factors. Patient is tender to palpation, and movement. She characterizes her pain as sharp radiating pain. Patient admits to nausea however she has not vomited. Bowel movements have been normal, patient denies any vaginal bleeding or discharge. She has a significant surgical history of a tubal ligation. - Related Data Home Medications Medication Instructions Recorded Confirmed Linaclotide [Linzess] 290 mcg PO DAILY 10/22/16 04/08/17 Sertraline [Zoloft] 50 mg PO DAILY 10/22/16 04/08/17 Allergies Allergy/AdvReac Type Severity Reaction Status Date / Time hydromorphone HCl AdvReac Severe MIGRAINE Verified 04/08/17 20:00 [From Dilaudid] Review of Systems ROS Statement: Those systems with pertinent positive or pertinent negative responses have been documented in the HPI. ROS Other: All systems not noted in ROS Statement are negative. Constitutional: Denies: fever Eyes: Denies: vision change ENT: Denies: congestion Respiratory: Denies: cough Cardiovascular: Denies: chest pain Endocrine: Denies: fatigue Gastrointestinal: Reports: abdominal pain, nausea. Denies: vomiting Genitourinary: Denies: dysuria Musculoskeletal: Reports: back pain Skin: Denies: rash Neurological: Denies: headache Psychiatric: Reports: anxiety Past Medical History Past Medical History: No Reported History Additional Past Medical History / Comment(s): MIGRAINES, rt flank pain, rt hip pain History of Any Multi-Drug Resistant Organisms: None Reported Past Surgical History: Orthopedic Surgery, Tonsillectomy, Tubal Ligation Additional Past Surgical History / Comment(s): two metal plates in left wrist Past Anesthesia/Blood Transfusion Reactions: Postoperative Nausea & Vomiting ( PONV) Past Psychological History: No Psychological Hx Reported Smoking Status: Never smoker Past Alcohol Use History: Occasional Past Drug Use History: None Reported - Past Family History Mother Family Medical History: No Reported History General Exam Limitations: no limitations General appearance: alert, in distress (Patient mild distress secondary to pain) Head exam: Present: atraumatic, normocephalic Eye exam: Present: normal appearance ENT exam: Present: mucous membranes moist Respiratory exam: Present: normal lung sounds bilaterally Cardiovascular Exam: Present: regular rate, normal rhythm, normal heart sounds GI/Abdominal exam: Present: soft, tenderness (Patient admits to pain in the right lower abdomen however patient is tender to palpation throughout the entire abdomen.). Absent: distended Rectal exam: Present: deferred Extremities exam: Present: normal inspection Back exam: Present: normal inspection, CVA tenderness (R), CVA tenderness (L) Neurological exam: Present: alert, oriented X3, CN II-XII intact, normal gait Psychiatric exam: Present: normal affect, normal mood Skin exam: Present: warm, dry, intact Course Vital Signs 04/08/17 18:19 Temperature 97.7 F Pulse Rate 96 Respiratory 18 Rate Blood Pressure 138/86 O2 Sat by Pulse 99 Oximetry Medical Decision Making - Medical Decision Making Patient presents with chief complaint of abdominal pain. Onset was 4 hours ago , though the patient states that she has had this pain on and off for a year. Patient states that she has had extensive workup for this, she is seen primary care, [facility]INIC SCHEDULER, and is even had injections in her back and she still periodically gets this pain. Patient denies any changes in bowel movements, dysuria, vaginal discharge or bleeding. Workup will start with lab work, and beta hCG. Given patient's extensive workup it is unlikely that we will find an acute finding and imaging however the necessity for imaging will be reevaluated after lab work returns. Patient will be given Reglan, Benadryl, and Toradol and reevaluated. Patient will get 2 L of IV fluid. On initial evaluation, vital signs are stable, patient is in mild distress secondary to pain. 9:36 PM The patient was reevaluated. Vital signs are stable, patient is in no acute distress. Patient reports complete resolution of her abdominal symptoms. At this time, the patient would like to be discharged home. She is instructed to follow up with primary care or to return to the emergency department if her symptoms worsen or change in anyway. - Lab Data Result diagrams: 04/08/17 20:14 Lab Results 04/08/17 04/08/17 04/08/17 Range/Units 20:14 20:14 20:14 WBC 7.1 (3.8-10.6) k/uL RBC 4.21 (3.80-5.40) m/uL Hgb 13.4 (11.4-16.0) gm/dL Hct 40.2 (34.0-46.0) % MCV 95.4 (80.0-100.0) fL MCH 31.9 (25.0-35.0) pg MCHC 33.4 (31.0-37.0) g/dL RDW 13.1 (11.5-15.5) % Plt Count 203 (150-450) k/uL Neutrophils % 58 % Lymphocytes % 33 % Monocytes % 5 % Eosinophils % 2 % Basophils % 1 % Neutrophils # 4.1 (1.3-7.7) k/uL Lymphocytes # 2.4 (1.0-4.8) k/uL Monocytes # 0.3 (0-1.0) k/uL Eosinophils # 0.2 (0-0.7) k/uL Basophils # 0.1 (0-0.2) k/uL Lipase 108 (23-300) U/L HCG, Quant <2.4 mIU/mL Urine Color Yellow Urine Appearance Clear (Clear) Urine pH 6.0 (5.0-8.0) Ur Specific [place] 1.018 (1.001-1.035) Urine Protein Negative (Negative) Urine Glucose (UA) Negative (Negative) Urine Ketones Negative (Negative) Urine Blood Small H (Negative) Urine Nitrite Negative (Negative) Urine Bilirubin Negative (Negative) Urine Urobilinogen 2.0 (<2.0) mg/dL Ur Leukocyte Esterase Small H (Negative) Urine RBC 8 H (0-5) /hpf Urine WBC 2 (0-5) /hpf Ur Squamous Epith Cells 1 (0-4) /hpf Urine Mucus Rare H (None) /hpf Disposition Clinical Impression: Abdominal migraine, not intractable Disposition: HOME SELF-CARE Condition: Good Instructions: Acute Abdominal Pain (ED) Referrals: Olga Paiz MD [Primary Care Provider] - 1-2 days
[2017-04-08 20:27] LABS: Basophils # (A) 0.1 k/uL (0-0.2); Basophils % (A) 1 %; CH 33.4; CHCM 35.1; Eosinophils # (A) 0.2 k/uL (0-0.7); Eosinophils % (A) 2 %; HCT 40.2 % (34.0-46.0); HDW 2.29; HGB 13.4 gm/dL (11.4-16.0); Luc % (Auto) 1; Lymphocytes # (A) 2.4 k/uL (1.0-4.8); Lymphocytes % (A) 33 %; MCH 31.9 pg (25.0-35.0); MCHC 33.4 g/dL (31.0-37.0); MCV 95.4 fL (80.0-100.0); Mean Platelet Volume 7.8; Monocytes # (A) 0.3 k/uL (0-1.0); Monocytes % (A) 5 %; Neutrophils # (A) 4.1 k/uL (1.3-7.7); Neutrophils % (A) 58 %; RBC 4.21 m/uL (3.80-5.40); RDW 13.1 % (11.5-15.5); WBC 7.1 k/uL (3.8-10.6); WBC (Perox) 7.58
[2017-04-08 20:31] LABS: Appearance,Urine Clear (Clear); Bilirubin,Urine Negative (Negative); Glucose,Urine (UA) Negative (Negative); Ketones,Urine Negative (Negative); Leukocyte Esterase,Urine Small (Negative); Mucus,Urine Rare /hpf; Nitrite,Urine Negative (Negative); Particle Count 1617; Protein,Urine Negative (Negative); RBC,Urine 8 /hpf (0-5); Specific Gravity,Urine 1.018 (1.001-1.035); Squamous Epithelial Cell,Urine 1 /hpf (0-4); UA Billing (MACRO vs. MICRO) MICRO; WBC,Urine 2 /hpf (0-5)
[2017-04-08 21:44] VITALS: BP 112/64; PULSE 47; TEMP 98.7
== END 2017-04-08 21:47 | disposition home or self-care (01) ==
LOC: EC 18:16
DX: G43.D0 Abdominal migraine, not intractable (principal); F41.9 Anxiety disorder, unspecified; Z98.51 Tubal ligation status; Z86.69 Personal history of other diseases of the nervous system and sense organs; Z79.899 Other long term (current) drug therapy; Z88.5 Allergy status to narcotic agent
CPT/HCPCS: 99284 ×2; 96374 ×2; 96375 ×4; 96361 ×2; 36415; 83690; 85025; 81001; 84702; J1200; J1100; J2765; J1885

== ENCOUNTER → 2017-04-19 | Outpatient (CLI) | payer BC ==
[2017-04-19 15:15] VITALS: BP 118/77; PULSE 67; RESP 16; TEMP 98.5
--- NOTE | 2017-04-19 15:22 | P.PN ---
Progress Note - Text Progress Note Date: 04/19/17 Patient returns for followup for chronic back pain with radiation to right hip. Patient recently underwent LESI x2 and superior cluneal NB x 2, which improved her back pain but she is still having pain in the right side of her abdomen, intermittent but severe and lasting from 30 minutes to 3 hours. Patient went to ER and was given Reglan/Benadryl/Toradol with complete resolution of her pain, but it returned 12 hours later; they diagnosed her with abdominal migraines. Patient also notes that she went off Elavil and Topamax ( for chronic migraines) around the time that her abdominal pain began. She continues on Motrin medications for pain with marginal relief. Patient denies adverse drug effects from medications. Today, pt denies new-onset weakness, bowel/bladder incontinence, or any other signs or symptoms of cauda equina syndrome. There are no signs of acute intoxication, and no indications of medication diversion or overuse. In addition to above, 13-point review of systems is also negative for chest pain , shortness of breath, changes in vision, changes in hearing, new onset weakness , abdominal pain, diarrhea, extreme fatigue, malaise, fever, skin changes, homicidal or suicidal ideation, or bowel or bladder incontinence. Vital Signs: Reviewed in EMR Gen: WDWN, AAOx3, NAD HEENT: NCAT, EOMI, hearing grossly normal Pulm: resp unlabored Neck: supple, trachea midline TTP over iliac crest; no rebound or guarding TTP over right anterior abdomen and flank Neuro: CN II-XII grossly intact, muscle strength lower extremities PRESERVED Imaging: Reviewed in EMR Assessment: 1. lumbar radiculopathy 2. chronic pain syndrome 3. abdominal migraine, questionable Plan: 1. Explanation: Opioid and psychological risk scores were reviewed. Diagnoses , prognoses, and multiple treatment options including but not limited to physical therapy, interventional therapies, adjuvant medical therapies, narcotic medication therapies, and surgery were discussed with the patient and all questions were answered to the patient's satisfaction. 2. Opioid agreement: none prescribed 3. Counseling: The patient was counseled extensively on BODY MASS INDEX, EXERCISE. Specifically, the patient was instructed regarding the importance of smoking cessation, obesity, and exercise in the context of both chronic pain and overall health. 4. Procedures: none for now 5. Consultations: None 6. Investigations: None 7. Medications: will start Voltaren gel, restart Topamax uptitrate to 50 BID and Elavil 25 mg daily to see if this is a "rebound abdominal migraine" 8. Disposition: f/u for re-eval in 6 weeks PQRS measures: 1-Patient's medications are documented in the chart. 2-Tobacco use is negative, counseling NOT given 3-Patient has not had a pneumococcal vaccine. 4-Advanced care planning discussed, patient unable to give. 5-Opioid contract NOT signed with the patient. 6-Pain positive, follow-up visit or procedure scheduled 7-Patient's blood pressure measured and documented, WNL. 8-Patient's weight was measured, and body mass index ABOVE the normal limits, and counseling was done. Patient instructed to follow up with PCP. 9-Patient WAS NOT identified as an unhealthy alcohol user.
== END ==
LOC: PNWHC3 14:32
PROVIDERS: ATTEND Anesthesiology
DX: M54.16 Radiculopathy, lumbar region (principal); Z79.899 Other long term (current) drug therapy
CPT/HCPCS: 99211

== ENCOUNTER → 2017-05-25 | Outpatient (CLI) | payer BC ==
[2017-05-25 13:25] LABS: Basophils # (A) 0.1 k/uL (0-0.2); Basophils % (A) 1 %; CHCM 32.7; Eosinophils # (A) 0.1 k/uL (0-0.7); Eosinophils % (A) 2 %; HCT 39.9 % (34.0-46.0); HDW 2.12; HGB 13.1 gm/dL (11.4-16.0); Luc # (Auto) 0.05; Luc % (Auto) 1; Lymphocytes # (A) 1.5 k/uL (1.0-4.8); Lymphocytes % (A) 24 %; MCH 31.3 pg (25.0-35.0); MCHC 32.8 g/dL (31.0-37.0); MCV 95.2 fL (80.0-100.0); Mean Platelet Volume 7.8; Monocytes # (A) 0.3 k/uL (0-1.0); Monocytes % (A) 4 %; Neutrophils # (A) 4.3 k/uL (1.3-7.7); Neutrophils % (A) 68 %; RBC 4.19 m/uL (3.80-5.40); RDW 13.2 % (11.5-15.5); WBC 6.3 k/uL (3.8-10.6); WBC (Perox) 6.82
[2017-05-25 13:51] LABS: C Reactive Protein <5.0 mg/L (<10.0); Rheumatoid Factor, Qnt <9 IU/mL (<12)
[2017-05-25 16:26] LABS: Erythrocyte Sedimentation Rate 2 mm/hr (0-20)
[2017-05-26 10:38] LABS: HLA B27 Comment SEEBELOW
== END | disposition home or self-care (01) ==
LOC: LABWHC1 12:34
PROVIDERS: ATTEND Orthopaedic Surgery
DX: M25.50 Pain in unspecified joint (principal)
CPT/HCPCS: 36415; 84550; 85025; 85652; 86038; 86140; 86431; 86812

== ENCOUNTER → 2017-07-07 | Outpatient (CLI) | payer BC ==
--- NOTE | 2017-07-08 09:27 | MM ---
Reason for exam: screening (asymptomatic). Last mammogram was performed 6 years and 11 months ago. History: Took hormonal contraceptives for 11 years. Physical Findings: A clinical breast exam by your physician is recommended on an annual basis and results should be correlated with mammographic findings. MG 3D Screening Mammo W/Cad Bilateral CC and MLO view(s) were taken. Prior study comparison: August 08, 2010, CAD bilateral diagnostic mammogram. The breast tissue is heterogeneously dense. This may lower the sensitivity of mammography. No suspicious abnormality. No significant changes when compared with prior studies. ASSESSMENT: Negative, BI-RAD 1 RECOMMENDATION: Routine screening mammogram of both breasts in 1 year.
== END | disposition home or self-care (01) ==
LOC: RADMAMWWP 13:31
PROVIDERS: ATTEND Family Medicine
DX: Z12.31 Encounter for screening mammogram for malignant neoplasm of breast (principal)
CPT/HCPCS: 77063; 77067

== ENCOUNTER → 2017-12-04 | Outpatient (CLI) | payer BC ==
[2017-12-04 09:10] LABS: Basophils # (A) 0.1 k/uL (0-0.2); Basophils % (A) 1 %; Eosinophils # (A) 0.2 k/uL (0-0.7); Eosinophils % (A) 3 %; HGB 14.4 gm/dL (11.4-16.0); Lymphocytes # (A) 1.6 k/uL (1.0-4.8); Lymphocytes % (A) 32 %; MCH 31.9 pg (25.0-35.0); MCHC 34.3 g/dL (31.0-37.0); MCV 92.9 fL (80.0-100.0); Monocytes # (A) 0.2 k/uL (0-1.0); Monocytes % (A) 5 %; Neutrophils # (A) 2.9 k/uL (1.3-7.7); Neutrophils % (A) 57 %; Platelet Count 185 k/uL (150-450); RBC 4.52 m/uL (3.80-5.40); RDW 12.6 % (11.5-15.5); WBC 5.1 k/uL (3.8-10.6)
[2017-12-04 09:21] LABS: ALT 34 U/L (9-52); AST 25 U/L (14-36); Albumin 4.3 g/dL (3.5-5.0); Alkaline Phosphatase 45 U/L (38-126); Anion Gap 12 mmol/L; Blood Urea Nitrogen 16 mg/dL (7-17); Calcium 9.4 mg/dL (8.4-10.2); Carbon Dioxide 25 mmol/L (22-30); Chloride 105 mmol/L (98-107); Cholesterol 179 mg/dL (<200); Glucose 91 mg/dL (74-99); HDL Cholesterol 73 mg/dL (40-60); LDL Cholesterol,Calculated 96 mg/dL (0-99); Potassium 4.7 mmol/L (3.5-5.1); Sodium 142 mmol/L (137-145); Total Bilirubin 0.7 mg/dL (0.2-1.3); Total Protein 6.7 g/dL (6.3-8.2); Triglycerides 48 mg/dL (<150)
[2017-12-04 17:27] LABS: Hemoglobin A1C 5.3 % (4.0-6.0)
== END | disposition home or self-care (01) ==
LOC: LABWHC1 08:35
PROVIDERS: ATTEND Family Medicine
DX: Z00.00 Encounter for general adult medical examination without abnormal findings (principal); R73.01 Impaired fasting glucose; R42 Dizziness and giddiness
CPT/HCPCS: 36415; 80053; 80061; 83036; 84443; 85025

== ENCOUNTER → 2022-07-24 | Outpatient (CLI) | payer BC, OTHER ==
[2022-07-24 10:50] LABS: Basophils # (A) 0.04 X 10*3/uL (0.00-0.10); Basophils % (A) 0.7 %; Eosinophils # (A) 0.15 X 10*3/uL (0.04-0.35); Eosinophils % (A) 2.8 %; HCT 39.1 % (37.2-46.3); HGB 13.1 g/dL (12.0-15.0); Immature Grans, Automated 0.2 %; Lymphocytes # (A) 1.78 X 10*3/uL (0.90-5.00); Lymphocytes % (A) 32.7 %; MCH 30.9 pg (27.0-32.0); MCHC 33.5 g/dL (32.0-37.0); MCV 92.2 fL (80.0-97.0); Monocytes # (A) 0.36 X 10*3/uL (0.20-1.00); Monocytes % (A) 6.6 %; NRBC Per 100 WBC 0 /100 WBCS (0.0-0.0); Neutrophils # (A) 3.11 X 10*3/uL (1.80-7.70); Platelet Count 209 X 10*3/uL (140-440); RBC 4.24 X 10*6/uL (4.10-5.20); RDW 12.1 % (11.5-14.5); WBC 5.45 X 10*3/uL (4.50-10.00)
[2022-07-24 11:35] LABS: ALT 11 U/L (8-44); AST 14 U/L (13-35); African American GFR (CKD) 103.2 (60.0-200.0); Albumin 4.5 g/dL (3.8-4.9); Albumin/Globulin Ratio 2.25 (1.60-3.17); Alkaline Phosphatase 53 U/L (41-126); BUN/Creat Ratio 22.38 Ratio (12.00-20.00); Blood Urea Nitrogen 17.9 mg/dL (9.0-27.0); Calcium 9.1 mg/dL (8.7-10.3); Carbon Dioxide 23.3 mmol/L (20.0-27.5); Chloride 109 mmol/L (96-109); Chol/HDL Ratio 2.56 Ratio; Glucose 87 mg/dL (70-110); LDL Cholesterol,Calculated 70.5 mg/dL (0.0-131.0); Magnesium 2.1 mg/dL (1.5-2.4); Potassium 4.3 mmol/L (3.5-5.5); Sodium 139 mmol/L (135-145); Total Protein 6.5 g/dL (6.2-8.2); VLDL Calculation 10.48 mg/dL (5.00-40.00)
== END | disposition home or self-care (01) ==
LOC: LABWHC1 08:08
PROVIDERS: ATTEND Internal Medicine
DX: F41.9 Anxiety disorder, unspecified (principal); R55 Syncope and collapse
CPT/HCPCS: 36415; 80053; 80061; 82533; 83036; 83735; 84443; 85025

== ENCOUNTER → 2022-09-15 | Day surgery (SDC) | payer BC ==
[2022-09-11 09:03] VITALS: BMI 25.8
[~2022-09-15] MED LIST changes: +LIDOCAINE 1% (10MG/ML) FOR IV START INTRADERMA PRN; +LIDOCAINE 2% INJ 20 MG/ML (2 ML VIAL) ONE; +ONDANSETRON 4 MG/2 ML VIAL ONE; +PROPOFOL 10 MG/ML 20 ML VIAL IV ONE
[2022-09-15 09:13] VITALS: TEMP 97.3
--- NOTE | 2022-09-15 10:21 | P.PCN ---
Date of Procedure: 09/15/22 Procedure(s) Performed: BRIEF HISTORY: Patient is a 47-year-old pleasant white female scheduled for an elective colonoscopy as a part of screening for colon cancer. PROCEDURE PERFORMED: Colonoscopy. PREOPERATIVE DIAGNOSIS: Screening for colon cancer. IV sedation per Anesthesia. PROCEDURE: After informed consent was obtained, the patient, was brought into the endoscopy unit. IV sedation was administered by Anesthesia under continuous monitoring. Digital rectal examination was normal. Initially the Olympus CF-160 flexible video colonoscope was then inserted in the rectum, gradually advanced into the cecum without any difficulty. Careful examination was performed as the scope was gradually being withdrawn. Ileocecal valve and the appendiceal orifice were visualized and appeared normal. Prep was excellent. Mucosa of the cecum, ascending colon, transverse colon, descending colon, sigmoid colon, and rectum appeared normal. Retroflexion was performed in the rectum and no lesions were seen. The patient tolerated the procedure well. IMPRESSION: Normal-appearing colon from rectum to cecum . RECOMMENDATIONS: Findings of this examination were discussed with the patient is well as her family.. She was advised to have a repeat screening colonoscopy in 10 years.
[2022-09-15 10:40] VITALS: BP 107/74; PULSE 84; RESP 20
== END ==
LOC: ORWHC2ENDO 08:46
PROVIDERS: ATTEND Internal Medicine Gastroenterology
DX: Z12.11 Encounter for screening for malignant neoplasm of colon (principal); K58.9 Irritable bowel syndrome, unspecified; G43.909 Migraine, unspecified, not intractable, without status migrainosus; Z79.899 Other long term (current) drug therapy
CPT/HCPCS: 45378; J2405; J2704; J2001

== ENCOUNTER 2022-11-12 08:58 | Day surgery (SDC) | payer BC ==
[~2022-11-12 08:58] MED LIST changes: -LACTATED RINGERS 1,000 ML IV SCH; -LIDOCAINE 1% (10MG/ML) FOR IV START INTRADERMA PRN; -LIDOCAINE 2% INJ 20 MG/ML (2 ML VIAL) ONE; -ONDANSETRON 4 MG/2 ML VIAL ONE; -PROPOFOL 10 MG/ML 20 ML VIAL IV ONE; +SODIUM CHLORIDE 0.9% 1,000 ML IV SCH
[2022-11-12 09:21] VITALS: BP 114/76; PULSE 64; RESP 16; TEMP 97.9
--- NOTE | 2022-11-12 12:24 | P.EPPROC ---
- EP Procedure Note Electrophysiology Procedure Note: Diagnosis Recurrent syncope Twelve-lead EKG shows sinus mechanism normal [place] narrow QRS normal ST segments normal QT interval no delta waves no epsilon waves Tilt table test per protocol Baseline heart rate 65 beats a minute, Baseline blood pressure 109/63 mmHg Patient was tilted upright at an angle of 70 per protocol. He was in immediate increase in the heart rate 240 beats a minute and then subsequently after 114 beats a minute sinus tachycardia within the first 10 minutes Her heart rate remained between 105 215 beats a minute. Mild decrease in blood pressure mid 90s. Patient felt weak and lightheaded and wanted lie down No syncope When she was laid supine heart rate went back to 60 beats a minute did blood pressure 119/59 mmHg Impression normal twelve-lead EKG Orthostatic intolerance, symptomatic.
== END 2022-11-12 11:35 | disposition home or self-care (01) ==
LOC: CATHEP 08:58
PROVIDERS: ATTEND Internal Medicine Clinical Cardiac Electrophysiology
DX: R55 Syncope and collapse (principal); F41.9 Anxiety disorder, unspecified; E11.9 Type 2 diabetes mellitus without complications; Z90.89 Acquired absence of other organs; Z98.890 Other specified postprocedural states; Z79.899 Other long term (current) drug therapy
CPT/HCPCS: 93660